=== PATIENT | male | born 1980 | race Caucasian/White ===

== ENCOUNTER 2021-06-24 06:51 | Emergency (ER) | payer BC ==
[~2021-06-24 06:51] MED LIST: AUGMENTIN 875-1 EACH PO; NAPROSYN500 MG PO
[2021-06-24 07:36] LABS: RED BLOOD COUNT 6.06 M/UL (4.20-5.50); WHITE BLOOD COUNT 8.3 K/UL (4.5-11.0)
[2021-06-24 07:59] LABS: BUN/CREATININE RATIO 13 (0-10)
[2021-06-24] MEDS ORDERED: TORADOL 10 MG T10 MG PO (10:04)
[2021-06-24] MEDS ORDERED: ZOFRAN ODT 4 MG4 MG PO (10:04)
[2021-06-24] MEDS ORDERED: PERCOCET 5-3251 EACH PO (10:05)
== END 2021-06-24 10:22 | disposition home or self-care (01) ==
LOC: ER1 06:51
PROVIDERS: Nurse Practitioner
DX: N13.2 Hydronephrosis with renal and ureteral calculous obstruction (principal); Z90.89 Acquired absence of other organs
CPT/HCPCS: 80053; 81001; 83605; 83690; 85025; 93005; 96374; 96375; 99284; J1885; J2405